=== PATIENT | female | born 1960 | race Caucasian/White ===

== ENCOUNTER → 2018-02-23 | Outpatient (CLI) | payer BC ==
--- NOTE | 2018-02-23 15:27 | RADIOLOGY REPORT (SQ) ---
EXAM DESCRIPTION: CT SOFT TISSUE NECK WITH COMPLETED DATE/TIME: 02/23/2018 2:49 pm REASON FOR STUDY: ENLARGED LYMPH NODES (R59.0), GOITER (E04.2) E04.2 NONTOXIC MULTINODULAR GOITER R 59.0 LOCALIZED ENLARGED LYMPH NODES COMPARISON: None. TECHNIQUE: Post IV contrasted scanning from skull base through lung apices with review of bone, soft tissue and lung windows. Reconstructed coronal and sagittal MPR images reviewed. All images stored on PACS. All CT scanners at this facility use dose modulation, iterative reconstruction, and/or weight based d osing when appropriate to reduce radiation dose to as low as reasonably achievable (ALARA). [facility]: Dose Right [facility]: CareDose [facility]: Dose Right [facility]: Teradose 4D [facility]: Mayday PAC CONTRAST TYPE AND DOSE: contrast/concentration: Isovue 370.00 mg/ml; Total Contrast Delivered: 75.0 ml; Total Saline Delivered: 55.0 ml RENAL FUNCTION: Creatinine 0.8 RADIATION DOSE: 22.38 mGy . LIMITATIONS: None. FINDINGS: SKULL BASE: Intact. MAJOR SALIVARY GLANDS: No solid or cystic masses. No inflammatory changes. LYMPHADENOPATHY: There are multiple enlarged cervical nodes as follows: Right supraclavicular 1.3 x 0.8 cm, Right jugulodigastric region 2.2 x 1.3 cm level 3 Right submandibular 2 x 1.2 cm level 2 Right submandibular 3 x 1.9 cm level 2 Multiple right posterior triangle 5 to 6 mm short axis level 5 Left submandibular 1.8 x 1.2 cm level 2 MUCOSAL MASSES OR ASYMMETRY: No mucosal masses or asymmetry. LARYNX/CORDS: No abnormal findings. VASCULAR STRUCTURES: The major vessels are patent. Incidental finding of a direct left vertebral art brooke origin off the aorta, an anatomic variant. Carotid bifurcations are widely patent. LUNG APICES: Clear. BONES: Intact. THYROID: 1 cm hypodense nodule in the posterior right lobe thyroid axial image 71 PARANASAL SINUSES: Clear. OTHER: No other significant finding. IMPRESSION: Cervical adenopathy as above TECHNICAL DOCUMENTATION: JOB ID: [id number] Quality ID # [id number]: Final reports with documentation of one or more dose reduction techniques (e.g., Au tomated exposure control, adjustment of the mA and/or kV according to patient size, use of iterative reconstruction technique) 2010 [employer]- All Rights Reserved Reading location - IP/workstation name: [email or web address] [email or web address] MACHINE [email or web address]
== END ==
LOC: RAD 13:53
PROVIDERS: ATTEND Otolaryngology
DX: E04.2 Nontoxic multinodular goiter (principal); R59.0 Localized enlarged lymph nodes
CPT/HCPCS: 70491; 82565

== ENCOUNTER → 2018-02-28 | Outpatient (CLI) | payer BC ==
--- NOTE | 2018-02-28 16:33 | RADIOLOGY REPORT (SQ) ---
EXAM DESCRIPTION: CHEST 2 VIEWS COMPLETED DATE/TIME: 02/28/2018 3:44 pm REASON FOR STUDY: LOCALIZED ENLARGED LYMPH NODES COMPARISON: None. EXAM PARAMETERS: NUMBER OF VIEWS: two views TECHNIQUE: Digital Frontal and Lateral radiographic views of the chest acquired. RADIATION DOSE: NA LIMITATIONS: none FINDINGS: LUNGS AND PLEURA: No opacities, masses or pneumothorax. No pleural effusion. MEDIASTINUM AND HILAR STRUCTURES: No masses or contour abnormalities. HEART AND VASCULAR STRUCTURES: Heart normal size. No evidence for failure. BONES: No acute findings. HARDWARE: Clips right upper quadrant post cholecystectomy. OTHER: No other significant finding. IMPRESSION: NO ACUTE RADIOGRAPHIC FINDING IN THE CHEST. TECHNICAL DOCUMENTATION: JOB ID: [id number] [employer]- All Rights Reserved Reading location - IP/workstation name: [email or web address]
== END ==
LOC: RAD 15:32
PROVIDERS: ATTEND Otolaryngology
DX: R59.0 Localized enlarged lymph nodes (principal); E04.2 Nontoxic multinodular goiter
CPT/HCPCS: 71046

== ENCOUNTER → 2018-03-07 | Day surgery (SDC) | payer BC ==
[~2018-03-07] MED LIST: LIDOCAINE 1% INJ-PF (10 MG/ML) 30 ML SDV ONE
--- NOTE | 2018-03-07 12:57 | RADIOLOGY REPORT (SQ) ---
EXAM DESCRIPTION: U/S BIOPSY THYROID COMPLETED DATE/TIME: 03/07/2018 10:34 am REASON FOR STUDY: LOCALIZED ENLARGED LYMPH NODES (R59.0) GOITER (E04.2) R59.0 LOCALIZED ENLARGED LY MPH NODES E04.2 NONTOXIC MULTINODULAR GOITER COMPARISON: CT soft tissue neck 02/23/2018 TECHNIQUE: Patient has a right midpole thyroid lesion and submandibular adenopathy on the right. Fi ne-needle aspirate of the thyroid nodule and core biopsy of the submandibular lymph node was discusse d with the patient, and she agreed to the procedures. Time-out was performed to confirm the patient's identity and procedure. Right lobe thyroid fine needle aspirate: The skin of the neck was prepped and draped in sterile fashion and 2.5 mL of 1% lidocaine was administered for local anesthesia. Under sonographic guidance, fine needle aspiration biopsy was per formed of the complex cyst right mid pole of the thyroid. This complex cystic area in the right mid pole thyroid measures 1.2 x 0.8 cm in size. A second, smaller 6 x 5 mm cyst is present in the griddle cook ior right midpole thyroid. This was not sampled. Four separate aspirations were performed. Specimens were accepted by Maci from cytology. Hemostas is was obtained with direct manual compression. There were no immediate complications. Right submandibular node biopsy: The skin of the neck was prepped and draped in sterile fashion and 2.5 mL of 1% lidocaine was administered for local anesthesia. Under sonographic guidance, a coaxial 14/15 gauge needle was used to obtain 4 cores of the enlarged right submandibular lymph node. Post biopsy, a ribbon clip was pl aced in the lymph node. Specimens or accepted by Maci from cytology. LIMITATIONS: None. FINDINGS: PATHOLOGY: Pending for the thyroid fine needle aspirate. Pending for the right submandibu lar enlarged lymph node core biopsy. IMPRESSION: ULTRASOUND-GUIDED FINE-NEEDLE ASPIRATE PERFORMED OF COMPLEX CYST IN THE RIGHT LOBE OF TH E THYROID. PATHOLOGY PENDING AT THE TIME OF DICTATION. ULTRASOUND-GUIDED CORE BIOPSY OF A RIGHT SUBMANDIBULAR ENLARGED LYMPH NODE. PATHOLOGY IS PENDING AT THE TIME OF DICTATION. COMMENT: Patient medication list reviewed: Yes- Quality ID# [id number]:Eligible professional attests to doc umenting in the medical record they obtained, updated, or reviewed the patient's current medications. TECHNICAL DOCUMENTATION: JOB ID: [id number] [employer]- All Rights Reserved Reading location - IP/workstation name: [email or web address] RESEARCH ANALYST-[facility]
== END ==
LOC: RAD 09:05
PROVIDERS: ATTEND Otolaryngology
PROC: 0G9H3ZX Drainage of Right Thyroid Gland Lobe, Percutaneous Approach, Diagnostic (ICD-10-PCS; principal; 2018-03-07)
DX: C82.01 Follicular lymphoma grade I, lymph nodes of head, face, and neck (principal); R59.0 Localized enlarged lymph nodes; E04.2 Nontoxic multinodular goiter
CPT/HCPCS: 88185 ×15; 88184; 88233; 88262; 88342 ×2; 88341 ×2; 88173 ×2; 88307 ×2; 60100; J3490

== ENCOUNTER → 2018-07-23 | Outpatient (CLI) | payer BC ==
--- NOTE | 2018-07-24 08:37 | RADIOLOGY REPORT (SQ) ---
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 TECHNIQUE: Blood glucose level was verified. Above dose of FDG was injected intravenously. 2-D seg mented attenuation correction images were obtained from the base of the skull to the midthighs. Nonc ontrast CT images were obtained for attenuation correction and fusion with emission images. CT image s were performed without oral or intravenous contrast and are not sensitive for parenchymal lesions. A series of overlapping emission PET images were obtained. Images reviewed and manipulated at [facility] work station by the radiologist. Images stored on PACS. LIMITATIONS: None. FINDINGS: HEAD AND NECK: There are enlarged cervical lymph nodes as follows: Right jugulodigastric 2.2 x 1.3 cm image 32, SUV 4.9 Right submandibular 2 x 1.4 cm image 33, SUV 5.8 Right submandibular 3 x 2 cm image 38, SUV 7.3 Left submandibular 2 x 1.2 cm image 36, SUV 2.6 A right supraclavicular lymph node is present on image 49, 1.2 x 0.9 cm in size with SUV 1.9. There is a small right posterior triangle lymph node 1 x 0.6 cm on axial image 35 with SUV less than blood pool, 0.9. CHEST: No areas of abnormal metabolic activity in the chest. ABDOMEN AND PELVIS: No areas of abnormal metabolic activity in the abdomen or pelvis. Expected physi ologic activity is present in the genitourinary system and bowel. PROXIMAL LOWER EXTREMITIES: No areas of abnormal metabolic activity in the soft tissues of the lower extremities. BONES: No abnormal metabolic activity in the visualized skeleton. ADDITIONAL CT FINDINGS: Post cholecystectomy. Mild diffuse degenerative changes throughout the spine . Borderline cardiomegaly. OTHER: Liver background SUV 2.4. 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
== END ==
LOC: RAD 14:31
PROVIDERS: ATTEND Internal Medicine
DX: C82.01 Follicular lymphoma grade I, lymph nodes of head, face, and neck (principal)
CPT/HCPCS: 78815; A9552

== ENCOUNTER → 2018-08-17 | Outpatient (CLI) | payer BC ==
[2018-08-17 17:23] LABS: ABSOLUTE EOSINOPHILS # (AUTO) 0.2 10^3/uL (0.0-0.6); ABSOLUTE LYMPHOCYTES (AUTO) 2.1 10^3/uL (0.5-4.7); ABSOLUTE MONOCYTES (AUTO) 0.5 10^3/uL (0.1-1.4); BASOPHILS % (AUTO) 0.3 % (0-2); EOSINOPHILS % (AUTO) 1.6 % (0-6); HEMATOCRIT 34.5 % (36.0-47.0); HEMOGLOBIN 11.8 g/dL (12.0-15.5); LYMPHOCYTES % (AUTO) 20.9 % (13-45); MEAN CORPUSCULAR HEMOGLOBIN 29.8 pg (27.0-33.4); MEAN CORPUSCULAR HGB CONC 34.2 g/dL (32.0-36.0); MEAN CORPUSCULAR VOLUME 87 fl (80-97); MONOCYTES % (AUTO) 5.5 % (3-13); PLATELET COUNT 268 10^3/uL (150-450); RED BLOOD COUNT 3.96 10^6/uL (3.72-5.28); RED CELL DISTRIBUTION WIDTH 13.5 % (11.5-14.0); SEGMENTED NEUTROPHILS % (AUTO) 71.7 % (42-78); TOTAL CELLS COUNTED % (AUTO) 100 %; WHITE BLOOD COUNT 9.8 10^3/uL (4.0-10.5)
[2018-08-17 17:47] LABS: BLOOD UREA NITROGEN 17 mg/dL (7-20)
== END ==
LOC: OD 16:00
PROVIDERS: ATTEND Radiology Radiation Oncology
DX: C82.01 Follicular lymphoma grade I, lymph nodes of head, face, and neck (principal)
CPT/HCPCS: 36415; 82565; 84520; 85025

== ENCOUNTER → 2018-12-24 | Outpatient (CLI) | payer BC ==
--- NOTE | 2018-12-25 09:37 | RADIOLOGY REPORT (SQ) ---
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 TECHNIQUE: Blood glucose level was verified. Above dose of FDG was injected intravenously. 2-D seg mented attenuation correction images were obtained from the base of the skull to the midthighs. Nonc ontrast CT images were obtained for attenuation correction and fusion with emission images. CT image s were performed without oral or intravenous contrast and are not sensitive for parenchymal lesions. A series of overlapping emission PET images were obtained. Images reviewed and manipulated at [facility] work station by the radiologist. Images stored on PACS. LIMITATIONS: None. FINDINGS: HEAD AND NECK: Marked improvement. Most of the adenopathy has resolved. 1.9 SUV uptake w ithin small bilateral submandibular nodes measuring 0.5 x 1.0 cm. CHEST: No areas of abnormal metabolic activity in the chest. ABDOMEN AND PELVIS: No areas of abnormal metabolic activity in the abdomen or pelvis. Expected physi ologic activity is present in the genitourinary system and bowel. PROXIMAL LOWER EXTREMITIES: No areas of abnormal metabolic activity in the soft tissues of the lower extremities. BONES: No abnormal metabolic activity in the visualized skeleton. ADDITIONAL CT FINDINGS: No additional significant findings on the noncontrast CT images. OTHER: Background liver 2.5 SUV. Blood pool 1.9 SUV. IMPRESSION: Favorable response to therapy. Minimal residual uptake within small bilateral submandib ular nodes. TECHNICAL DOCUMENTATION: JOB ID: [id number]- All Rights Reserved Reading location - IP/workstation name: [email or web address]
== END ==
LOC: RAD 14:59
PROVIDERS: ATTEND Physician Assistant Medical
DX: C82.01 Follicular lymphoma grade I, lymph nodes of head, face, and neck (principal)
CPT/HCPCS: 78815; A9552